=== PATIENT | male | born 1980 | race Caucasian/White ===

== ENCOUNTER 2022-10-18 08:39 | Outpatient (CLI) | payer MEDICAID, SELFPAY | END 2022-10-18 08:40 | disposition home or self-care (01) | PROVIDERS: PCP Family Medicine; Visit Provider Family Medicine | DX: Z00.00 Encounter for general adult medical examination without abnormal findings (principal); I10 Essential (primary) hypertension; E78.5 Hyperlipidemia, unspecified | CPT/HCPCS: 80048; 80061 ==

== ENCOUNTER 2024-04-23 08:31 | Outpatient (CLI) | payer MEDICAID, SELFPAY ==
[2024-04-23 16:21] LABS: Chlamydia DNA Amplified* NOT DETECTED (No Detected); GC DNA Amplified* NOT DETECTED (No Detected)
== END 2024-04-23 08:32 | disposition home or self-care (01) ==
PROVIDERS: PCP Family Medicine; Visit Provider Family Medicine
DX: Z00.00 Encounter for general adult medical examination without abnormal findings (principal); I10 Essential (primary) hypertension; E78.5 Hyperlipidemia, unspecified; M25.50 Pain in unspecified joint; R05.9 Cough, unspecified; F10.10 Alcohol abuse, uncomplicated; R53.1 Weakness; Z11.3 Encounter for screening for infections with a predominantly sexual mode of transmission
CPT/HCPCS: 80053; 80061; 84403; 86200; 87491; 87591

== ENCOUNTER 2024-08-15 20:09 | Outpatient (CLI) | payer MEDICAID, SELFPAY ==
--- NOTE | 2024-08-29 08:24 | W.PM.SLEEP ---
Sleep Study Details Details Interpreting Provider: Rodriguez Date of Sleep Study: 08/15/24 Sleep Study Details: STUDY TYPE:? Attended, hospital-based with CPAP titration ? BMI:? 33 ORDERING PROVIDER:Frances Alvarez INDICATION:? Concerned about sleep apnea ? SLEEP SUMMARY:? 353 minutes total sleep time RESPIRATORY SUMMARY:? Mean oxygen awake 93 asleep 92 minimum 82 5 minutes oxygen between 80 and 88% AHI 31.8, REM AHI 28.8. Note that the entire diagnostic portion of the study was done in the nonsupine position. CPAP was titrated to a pressure of 7 this included supine REM sleep and decreased AHI to 2.9 using CMS guideline and down to 7 using rule 1A. PERIODIC LIMB MOVEMENTS OF SLEEP:? None CARDIAC:? Awake 68, asleep 70. No arrhythmias noted IMPRESSION:? Severe obstructive sleep apnea. CPAP titration was relatively successful at a pressure of 7. Would recommend initiating AutoSet CPAP at a pressure of 6-17. RECOMMENDATION: See above impression
== END 2024-08-15 20:10 | disposition home or self-care (01) ==
PROVIDERS: PCP Family Medicine; Visit Provider Otolaryngology
DX: G47.33 Obstructive sleep apnea (adult) (pediatric) (principal)
CPT/HCPCS: 95811; A9270

== ENCOUNTER 2025-05-10 11:20 | Outpatient (CLI) | payer MEDICAID, SELFPAY | END 2025-05-10 11:21 | disposition home or self-care (01) | PROVIDERS: PCP Family Medicine; Visit Provider Family Medicine | DX: I10 Essential (primary) hypertension (principal); E78.2 Mixed hyperlipidemia | CPT/HCPCS: 80048; 80061 ==